=== PATIENT | female | born 2000 | race Caucasian/White ===

== ENCOUNTER 2023-08-26 20:41 | Emergency (ER) | payer OTHER ==
[2023-08-26 20:46] VITALS: BP 112/77; PULSE 101; RESP 19; TEMP 98.4; BMI 30.9
[2023-08-26] MEDS ORDERED: DEXAMETHASONE SOD PHOSPHATE 10 MG/1 ML VIAL ONE (21:37)
[2023-08-26] MEDS: DEXAMETHASONE SOD PHOSPHATE 10 MG/1 ML VIAL IM ONE (21:44)
[2023-08-26] MEDS: ALBUTEROL SO4 2.5/IPRATROPIUM 0.5 INH SOL 3 ML VIAL.NEB. NEB SCH (21:44)
== END 2023-08-26 22:47 | disposition home or self-care (01) ==
LOC: JER 20:41
PROC: 3E023GC Introduction of Other Therapeutic Substance into Muscle, Percutaneous Approach (ICD-10-PCS; principal; 2023-08-26)
PROC: 3E0F7GC Introduction of Other Therapeutic Substance into Respiratory Tract, Via Natural or Artificial Opening (ICD-10-PCS; 2023-08-26)
DX: R05.9 Cough, unspecified (principal); R06.02 Shortness of breath; J45.909 Unspecified asthma, uncomplicated; Z20.822 Contact with and (suspected) exposure to COVID-19
CPT/HCPCS: 0241U-QW; 71046-TC-FY; 99284-25; J1100

== ENCOUNTER 2024-01-03 22:51 | Emergency (ER) | payer OTHER ==
[2024-01-03 23:11] VITALS: BP 123/67; PULSE 97; RESP 18; TEMP 98.3; BMI 30.9
== END 2024-01-04 01:08 | disposition home or self-care (01) ==
LOC: JER 22:51
DX: U07.1 COVID-19 (principal); J02.9 Acute pharyngitis, unspecified; R50.9 Fever, unspecified
CPT/HCPCS: 0241U-QW; 87651; 99283-25